=== PATIENT | male | born 1995 | race African-American/Black ===

== ENCOUNTER 2017-03-14 13:50 | Emergency (ER) | payer BC ==
[2017-03-14 14:26] VITALS: BP 135/69; PULSE 84; TEMP 98.6; BMI 24.3
--- NOTE | 2017-03-14 14:49 | PDOC ---
History of Present Illness - General Chief Complaint: Injury Stated Complaint: FALL Time Seen by Provider: 03/14/17 14:48 History Source: Patient Exam Limitations: No Limitations - History of Present Illness Initial Comments: CHIEF COMPLAINT: 21 y/o afebrile male with right leg scrapes sustained today. HISTORY OF PRESENT ILLNESS: The patient states he was in a parking lot when he fell into a whole in the asphalt, scraping his right leg in multiple places. The patient can still walk. He states he cleaned the area with water. He is UTD on immunizations. Vital signs on arrival are within normal limits. REVIEW OF SYSTEMS: GENERAL/CONSTITUTIONAL: No fever/chills. No weakness. No weight change. HEAD, EYES, EARS, NOSE AND THROAT: No change in vision. No ear pain or discharge. No sore throat. MUSCULOSKELETAL: No joint or muscle swelling or pain. No neck or back pain. SKIN: +multiple scrapes to right LE. NEUROLOGIC: No headache, vertigo, loss of consciousness, or loss of sensation. PHYSICAL EXAM: VITAL_SIGNS: within normal limits GENERAL_APPEARANCE: alert, cooperative, no obvious discomfort. The patient is ambulatory with normal gait. MENTAL_STATUS: speech clear, oriented X 3, responds appropriately to questions. NEURO: motor intact and sensory intact in injured extremity. EXTREMITIES: 8cm x 6cm abrasion to right, proximal, lateral lower extremity with macerated skin but without active bleeding. 2 long scrapes extend from mid right, lateral LE down towards the ankle without active bleeding and already scabbing over. 4cm x 3cm superficial abrasion to proximal, medial right LE without active bleeding. Full flexion and extension of right knee. SKIN: warm, dry, good color. Past History - Past Medical History Allergies/Adverse Reactions: Allergies Allergy/AdvReac Type Severity Reaction Status Date / Time No Known Allergies Allergy Verified 03/14/17 14:26 - Psycho/Social/Smoking Cessation Hx Suicidal Ideation: No Smoking History: Never smoked Have you smoked in the past 12 months: No Information on smoking cessation initiated: No Hx Alcohol Use: No Drug/Substance Use Hx: No *Physical Exam - Vital Signs Last Vital Signs Temp Pulse Resp BP Pulse Ox 98.6 F 84 18 135/69 100 03/14/17 14:18 03/14/17 14:18 03/14/17 14:18 03/14/17 14:18 03/14/17 14:18 Medical Decision Making - Medical Decision Making A/P: 21 y/o male with multiple abrasions to right LE after falling in a hole in the asphalt of a parking lot. Cleaned all wounds with hydrogen peroxide, applied bacitracin and covered. Instructed the patient to keep wounds clean, apply neosporin once daily and keep covered. Pt instructed to return to the ER with any worsening or concerning symptoms. The patient verbalizes understanding of all instructions, has no further questions and is awaiting discharge. *DC/Admit/Observation/Transfer Diagnosis at time of Disposition: Abrasion of leg, right Qualifiers: Encounter type: initial encounter Qualified Code(s): S80.811A - Abrasion, right lower leg, initial encounter - Discharge Dispostion Disposition: HOME Condition at time of disposition: Good - Referrals Referrals: Magan Lopez MD [Primary Care Provider] - - Patient Instructions Printed Discharge Instructions: DI for Abrasion Additional Instructions: Discharge Instructions: -Keep wound clean by washing gently with warm water and soap -Apply over the counter Neosporin once a day after cleaning -Keep wounds covered -Return to the ER with any worsening or concerning symptoms
== END 2017-03-14 15:25 | disposition home or self-care (01) ==
LOC: JERFT 13:50
DX: S80.811A Abrasion, right lower leg, initial encounter (principal); W17.2XXA Fall into hole, initial encounter; Y93.01 Activity, walking, marching and hiking; Y92.481 Parking lot as the place of occurrence of the external cause; Y99.8 Other external cause status
CPT/HCPCS: 99281-25